=== PATIENT | female | born 1990 | race Caucasian/White ===

== ENCOUNTER 2020-12-18 16:51 | Inpatient (IN) ==
[2020-12-18] MEDS ORDERED: OXYTOCIN 30 UNITS/500 ML BAG IV PRN ×2 (18:51→22:14)
[2020-12-18] MEDS ORDERED: BUTORPHANOL TARTRATE 1 MG/ML VIAL IV PRN (19:01)
[2020-12-18 19:12] LABS: Hematocrit (blood only) 37.6 % (37-47); Hemoglobin 12.8 g/dL (12.0-16.0); Mean Corpuscular Volume 88.3 fL (80-100); Mean Platelet Volume 11.4 fL (7.4-10.4); Platelet Count 147 K/uL (130-400); RDW Coefficient of Variation 13.9 % (11.5-14.5); RDW Standard Deviation 45.3 fL (36.4-46.3); Red Blood Count 4.26 M/uL (4.2-5.4); White Blood Count 13.44 K/uL (4.8-10.8)
[2020-12-18] MEDS ORDERED: ePHEDrine sulfate 50 MG/ML AMP ONE (21:10)
[2020-12-18] MEDS ORDERED: SODIUM CHLORIDE 0.9% INJ 10 ML VIAL ONE (21:10)
[2020-12-18] MEDS ORDERED: BUPIVACAINE 0.25% 30 ML VIAL ONE (21:10)
[2020-12-18] MEDS ORDERED: fentaNYL citrate 100 MCG/2 ML VIAL ONE (21:11)
[2020-12-18] MEDS ORDERED: fentaNYL 2MCG/ML ROPIVACAINE 1.25MG/ML 100 ML BAG EPI ONE (21:11)
[2020-12-18] MEDS: LACTATED RINGER'S 1,000 ML IV PRN (21:24)
[2020-12-18] MEDS ORDERED: ePHEDrine sulfate 50 MG/ML AMP IV PRN (21:36)
[2020-12-18] MEDS ORDERED: PROMETHAZINE HCL 12.5 MG in SODIUM CHLORIDE 0.9% 50 ML IV PRN (21:36)
[2020-12-18] MEDS ORDERED: diphenhydrAMINE 50 MG/ML VIAL IV PRN (21:36)
[2020-12-18] MEDS ORDERED: NALOXONE HCL 1 MG in SODIUM CHLORIDE 0.9% 1000ML 1,000 ML IV PRN (21:36)
[2020-12-18] MEDS ORDERED: ONDANSETRON INJ 2 MG/ML 2 ML VIAL IV PRN (21:36)
[2020-12-18] MEDS ORDERED: NALOXONE HCL 0.4 MG/1 ML VIAL/CARP IV PRN (21:36)
[2020-12-18] MEDS ORDERED: fentaNYL 2MCG/ML ROPIVACAINE 1.25MG/ML 100 ML BAG EPI PRN (21:36)
--- NOTE | 2020-12-18 21:36 | Anesthesiology Consultation ---
Date of Service December 18, 2020 Assessment & Plan ASA ASA2 Proposed Anesthesia Anesthesia Type: Labor Epidural Risk / Benefits Reviewed With: PT / POA / Parent / Guardian, Accepts Plan and Informed Consent Obtained History Height/Weight Height: 5 ft 4.5 in Weight: 72.575 kg Allergies Allergy/AdvReac Type Severity Reaction Status Date / Time clindamycin Allergy Hives Verified 12/18/20 18:07 hydromorphone [From Dilaudid] AdvReac Vomiting Verified 12/18/20 18:07 Medications Home Medications Medication Instructions Recorded Confirmed Last Taken omega-3 fatty acids [Fish Oil] 1 cap PO DAILY 12/18/20 12/18/20 12/17/20 17:00 prenat.vits,abdon,[id number] 1 tab PO DAILY 12/18/20 12/18/20 12/18/20 09:00 [ Vitamin] Active Medications Generic Name Dose Route Start Last Admin Trade Name Freq PRN Reason Stop Dose Admin Lactated Ringer's 1,000 mls @ 125 mls/hr 12/18/20 18:51 12/18/20 21:54 Lr IV 12/20/20 18:50 125 mls/hr .Q8H PRN Infusion L&D Protocol Protocol Past Medical History Medical History Asthma as a child MRSA (methicillin resistant Staphylococcus aureus) Pneumonia 2013 Exercise / Class Metabolic Activity II 4-5 Yardwork/Stairs/Walk up hill Past Surgical History Surgical History No history of previous surgery Past Anesthesia History No Hx of Anesthesia Complications and No Family Hx of Anesthesia Complications History of PONV No Hx of PONV and No Hx of Motion Sickness Social History Smoking Status: Never smoker Hx Alcohol Use: No Hx Substance Use: No Review of Systems denies fever/cough/ colds/ chest pain/ SOB/ MAIREL denies MARIEL Physical Exam Vital Signs Last Vital Signs Temp 36.8 C 12/18/20 20:24 Pulse 115 H 12/18/20 22:09 Resp 20 12/18/20 20:24 BP 108/57 L 12/18/20 22:01 Pulse Ox 99 12/18/20 22:09 ENMT Mouth: no TMJ abnormality and no dentition abnormality Thyromental Distance: > or= 3.5 Finger Breadths Mallampati Class: II Neck neck extension not limited Respiratory normal respiratory effort; no respiratory distress Auscultation: lungs clear to auscultation bilaterally Cardiovascular Rate/Rhythm: regular rate and regular rhythm Neurologic moves all extremities Psychiatric Orientation: alert and oriented x 3 Testing Laboratory Results 12/18/20 19:03
[2020-12-18] MEDS ORDERED: CALCIUM CARBONATE 500 MG CHEWABLE TAB PO PRN (23:29)
[2020-12-19] MEDS: LACTATED RINGER'S 1,000 ML IV PRN (02:27)
[2020-12-19] MEDS ORDERED: DIPHTHERIA/TETANUS/PERTUSSIS 0.5 ML SYR/VIAL IM ONE (04:22)
[2020-12-19] MEDS ORDERED: ACETAMINOPHEN W/CODEINE #3 1 TAB PO PRN (04:22)
[2020-12-19] MEDS ORDERED: ACETAMINOPHEN 325 MG TAB PO PRN (04:22)
[2020-12-19] MEDS ORDERED: SUPERCREAM 0.870% 15 GM JAR EXT PRN (04:22)
[2020-12-19] MEDS ORDERED: oxyCODONE/ACETAMINOPHEN 5mg/325mg TAB PO PRN (04:22)
[2020-12-19] MEDS ORDERED: BENZOCAINE 20% AER SPR 82.5 GM CAN EXT PRN (04:22)
[2020-12-19] MEDS ORDERED: OXYTOCIN 30 UNITS/500 ML BAG IV PRN (04:22)
[2020-12-19] MEDS ORDERED: METHYLERGONOVINE MALEATE 0.2 MG/ML AMP IM ONE (04:22)
[2020-12-19] MEDS ORDERED: miSOPROStoL 200 MCG TAB PR ONE (04:22)
[2020-12-19] MEDS ORDERED: bisacodyL 10 MG SUPP PR PRN (04:22)
[2020-12-19] MEDS ORDERED: HYDROCORTISONE ACETATE 25 MG SUPP PR PRN (04:22)
--- NOTE | 2020-12-19 04:57 | Delivery Summary ---
DATE OF DELIVERY: 12/19/2020 She is 1, para 1. Blood type is O positive, group B strep negative. Due date is 12/20/2020. Was admitted in early labor, she went into spontaneous labor. She had a couple doses of Stadol for pain control. Eventually, she had an epidural. After the epidural was placed and she had good pain relief, membranes were ruptured surgically with some slight meconium noted. She then continued to la bor spontaneously, went to full dilatation in about an hour and a half and pushed out a live male inf ant via direct occiput anterior position over an intact perineum. There was an umbilical cord, which was delivered along with the head. It was not around the neck but just parallel to the body. Infan t was delivered. Cord was allowed to pulse for 1 minute and it was clamped and cut by the father. C ord blood was taken. With IV Pitocin the placenta was removed intact. We also gave a 0.2 of IM Meth ergine, and rectal Cytotec. Inspection of the vagina revealed bilateral sulcus, each sulcus on the r ight and left side. The apex was identified and a running heavy Vicryl was used to reapproximate the vaginal mucosa out to beyond the hymenal ring. Then, a deep suture was used to approximate the bree rajni body. A separate deep suture was used to reapproximate the bulbocavernosus muscle. A running s uture was used to approximate the vaginal edges out to beyond the opening of the vagina. Following t his, hemostasis was good. Rectal exam while giving rectal Cytotec was normal. There were no stitche s through the rectum. Bladder was emptied with a Spencer. Hemostasis was good at the end of the proce dure. Estimated blood loss was 500 mL. Job ID: [id number]
[2020-12-19] MEDS: PRENATAL VITAMIN 1 TAB PO SCH (09:24)
[2020-12-19] MEDS: DOCUSATE SODIUM 100 MG CAP PO SCH ×2 (09:24→17:48)
[2020-12-19] MEDS: IBUPROFEN 600 MG TAB PO PRN ×4 (09:24→23:44)
--- NOTE | 2020-12-19 09:44 | Anesthesia Procedure Note ---
Date of Service December 19, 2020 Anesthesia Post Epidural Note Vital Signs Vital Signs: Temp Pulse Resp BP Pulse Ox 37.1 C 93 H 18 96/60 L 98 12/19/20 07:20 12/19/20 07:20 12/19/20 07:20 12/19/20 07:20 12/19/20 07:20 Pain Intensity Bilateral Abdomen: Pain Intensity: 6 Perineal: Pain Intensity: 5 Notes Mental Status: alert / awake / arousable and participated in evaluation Nausea / Vomiting: adequately controlled Pain: adequately controlled Airway Patency, RR, SpO2: stable & adequate BP & HR: stable & adequate Hydration State: stable & adequate Neuraxial Anesthesia: was administered and sensory block is resolving Anesthetic Complications: no major complications apparent and Pt Satisfied with anesthetic care Epidural: Removed without complications and With tip intact Notes: Epidural site clean, dry and intact. No signs of edema, erythema or bruising at insertion site. Pt instructed to request anesthesia if she has residual lower extremity numbness or if she develops lower extremity pain or weakness, back pain or headache.
[2020-12-19] MEDS ORDERED: METHYLERGONOVINE MALEATE 0.2 MG/ML AMP ONE (21:14)
[2020-12-20 06:51] LABS: Hematocrit (blood only) 32.5 % (37-47); Mean Corpuscular Hemoglobin 29.3 pg (25-34); Mean Corpuscular Hgb Conc 33.8 g/dL (32-36); Mean Corpuscular Volume 86.4 fL (80-100); Mean Platelet Volume 11.3 fL (7.4-10.4); Platelet Count 130 K/uL (130-400); Red Blood Count 3.76 M/uL (4.2-5.4); White Blood Count 11.81 K/uL (4.8-10.8)
[2020-12-20] MEDS: IBUPROFEN 600 MG TAB PO PRN ×4 (08:32→22:18)
[2020-12-20] MEDS: DOCUSATE SODIUM 100 MG CAP PO SCH ×2 (08:32→20:07)
[2020-12-20] MEDS: PRENATAL VITAMIN 1 TAB PO SCH (08:32)
--- NOTE | 2020-12-20 09:36 | Obstetrical Progress Note ---
Date of Service December 20, 2020 Assessment & Plan Admission and Anticipated Discharge Date Admission Date: December 18, 2020 Physical Exam Physical Exam: abdomen soft and non tender no calf tenderness ambulating well vaginal bleeding scant hgb 11.0 Results & Data ([facility]) Vital Signs (Past 12 Hours) Vital Signs Temp Pulse Resp BP Pulse Ox 12/20/20 08:37 36.5 C 76 22 112/76 12/20/20 03:00 36.8 C 83 16 98/68 L 98 12/19/20 23:05 36.6 C 78 16 106/70 98
[2020-12-20] MEDS ORDERED: bisacodyL 5 MG TABEC PO SCH (20:00)
[2020-12-21 06:48] LABS: Hematocrit (blood only) 31.9 % (37-47); Hemoglobin 10.5 g/dL (12.0-16.0)
[2020-12-21] MEDS: DOCUSATE SODIUM 100 MG CAP PO SCH (08:36)
[2020-12-21] MEDS: PRENATAL VITAMIN 1 TAB PO SCH (08:36)
--- NOTE | 2020-12-21 09:51 | Obstetrical Progress Note ---
Date of Service December 21, 2020 Assessment & Plan Admission and Anticipated Discharge Date Admission Date: December 18, 2020 Physical Exam Physical Exam: abdomen soft and non tender ambulating well no calf tenderness vaginal bleeding scant hgb 10.5 Results & Data ([facility]) Vital Signs (Past 12 Hours) Vital Signs Temp Pulse Resp BP 12/20/20 23:25 36.8 C 80 16 98/64 L
[2020-12-21] MEDS: IBUPROFEN 600 MG TAB PO PRN (11:46)
== END 2020-12-21 12:10 | disposition home or self-care (01) | DRG 807 ==
LOC: OPB 16:51 → 4S1 17:05 → 4S2 12-19 07:00

== ENCOUNTER 2022-10-30 19:04 | Inpatient (IN) ==
[2022-10-30] MEDS ORDERED: LACTATED RINGER'S 1,000 ML IV PRN (19:47)
[2022-10-30] MEDS ORDERED: OXYTOCIN 30 UNITS/500 ML BAG IV PRN (19:47)
[2022-10-30] MEDS ORDERED: LIDOCAINE 1% LOCAL 20 ML VIAL INFIL PRN (19:47)
[2022-10-30] MEDS ORDERED: miSOPROStoL 50 MCG TAB PO ONE (19:59)
[2022-10-30 20:34] LABS: Hematocrit (blood only) 32.4 % (37.0-47.0); Hemoglobin 10.8 g/dl (12.0-16.0); Mean Corpuscular Hemoglobin 27.3 pg (25.0-34.0); Mean Corpuscular Hgb Conc 33.3 g/dL (32.0-36.0); Mean Platelet Volume 12.6 fL (9.4-12.4); Platelet Count 138 K/uL (130-400); RDW Coefficient of Variation 15.2 % (11.5-14.5); RDW Standard Deviation 44.9 fL (36.4-46.3); Red Blood Count 3.95 M/uL (4.20-5.40); White Blood Count 8.93 K/ul (4.8-10.8)
[2022-10-30] MEDS ORDERED: fentaNYL 2MCG/ML ROPIVACAINE 1.25MG/ML 100 ML BAG EPI PRN (23:19)
[2022-10-30] MEDS ORDERED: fentaNYL 2MCG/ML ROPIVACAINE 1.25MG/ML 100 ML BAG EPI ONE (23:19)
[2022-10-30] MEDS ORDERED: ROPIVACAINE 0.5% PF 5 MG/ML 20 ML VIAL EPI PRN (23:19)
[2022-10-30] MEDS ORDERED: SODIUM CHLORIDE 0.9% PF INJ 10 ML VIAL ONE (23:19)
[2022-10-30] MEDS ORDERED: NALOXONE HCL 0.4 MG/1 ML VIAL/CARP IV PRN (23:19)
[2022-10-30] MEDS ORDERED: NALBUPHINE HCL INJ 10 MG/ML AMP IV PRN (23:19)
[2022-10-30] MEDS ORDERED: SODIUM CHLORIDE 0.9% PF INJ 10 ML VIAL EPI STA (23:19)
[2022-10-30] MEDS ORDERED: SODIUM CHLORIDE 0.9% PF INJ 10 ML VIAL EPI PRN (23:19)
[2022-10-30] MEDS ORDERED: diphenhydrAMINE 50 MG/ML VIAL IV PRN (23:19)
[2022-10-30] MEDS ORDERED: LIDOCAINE 2% MPF LOCAL 5 ML VIAL EPI PRN (23:19)
[2022-10-30] MEDS ORDERED: ePHEDrine sulfate 50 MG/ML AMP IV PRN (23:19)
[2022-10-30] MEDS ORDERED: BUPIVACAINE 0.25% PF 30 ML VIAL EPI PRN (23:19)
[2022-10-30] MEDS ORDERED: NALOXONE HCL 1 MG in SODIUM CHLORIDE 0.9% 1000ML 1,000 ML IV PRN (23:19)
[2022-10-30] MEDS ORDERED: ONDANSETRON INJ 2 MG/ML 2 ML VIAL IV PRN (23:19)
[2022-10-30] MEDS ORDERED: fentaNYL citrate PF 100 MCG/2 ML VIAL EPI STA (23:19)
[2022-10-30] MEDS ORDERED: BUPIVACAINE 0.25% PF 30 ML VIAL EPI STA (23:19)
[2022-10-30] MEDS ORDERED: LIDOCAINE 2%/EPINEPHRINE 1:200,000 20 ML PF ONE (23:19)
[2022-10-30] MEDS ORDERED: LIDOCAINE 2%/EPINEPHRINE 1:200,000 20 ML PF EPI STA (23:19)
[2022-10-30] MEDS ORDERED: BUPIVACAINE 0.25% PF 30 ML VIAL ONE (23:19)
[2022-10-30] MEDS ORDERED: fentaNYL citrate PF 100 MCG/2 ML VIAL EPI PRN (23:19)
[2022-10-30] MEDS ORDERED: fentaNYL citrate PF 100 MCG/2 ML VIAL ONE (23:19)
--- NOTE | 2022-10-30 23:24 | Anesthesiology Consultation ---
Date of Service October 30, 2022 Assessment & Plan ASA ASA2 Proposed Anesthesia Anesthesia Type: Labor Epidural Risk / Benefits Reviewed With: PT / POA / Parent / Guardian, Accepts Plan and Informed Consent Obtained History Height/Weight Height: 5 ft 5 in Weight: 79.199 kg Allergies Allergy/AdvReac Type Severity Reaction Status Date / Time clindamycin Allergy Hives Verified 12/18/20 18:07 hydromorphone [From Dilaudid] AdvReac Vomiting Verified 12/18/20 18:07 Medications Home Medications Medication Instructions Recorded Confirmed Last Taken omega-3 fatty acids 1 cap PO DAILY 12/18/20 12/18/20 12/17/20 17:00 prenat.vits,abdon,sgo-[id number]-gjskz 1 tab PO DAILY 12/18/20 10/30/22 10/30/22 Active Medications Generic Name Dose Route Start Last Admin Trade Name Freq PRN Reason Stop Dose Admin Lactated Ringer's 1,000 mls @ 125 mls/hr 10/30/22 19:47 10/30/22 23:45 Lr IV 11/01/22 19:46 125 mls/hr .Q8H PRN Infusion L&D Protocol Protocol Ropivacaine 100 ml 10/30/22 23:19 10/30/22 23:52 Fentanyl 2mcg/Ml Ropivacaine 1.25mg/Ml 100 Ml Bag EPI 10/31/22 23:18 100 ml PRN PRN Administration Pain R/T Labor Protocol Past Medical History Medical History Asthma as a child MRSA (methicillin resistant Staphylococcus aureus) Pneumonia 2013 Exercise / Class Metabolic Activity II 4-5 Yardwork/Stairs/Walk up hill Past Surgical History Surgical History No history of previous surgery Past Anesthesia History No Hx of Anesthesia Complications and No Family Hx of Anesthesia Complications History of PONV No Hx of PONV and No Hx of Motion Sickness Social History Smoking Status: Never smoker Hx Alcohol Use: No Hx Substance Use: No Review of Systems denies fever/cough/ colds/ chest pain/ SOB/ MARIEL denies MARIEL Physical Exam Vital Signs Last Vital Signs Temp 36.8 C 10/30/22 22:54 Pulse 111 H 05/14/23 23:58 Resp 16 10/30/22 23:48 BP 120/73 10/30/22 23:58 Pulse Ox 99 10/30/22 23:57 ENMT Mouth: no TMJ abnormality and no dentition abnormality Thyromental Distance: > or= 3.5 Finger Breadths Mallampati Class: II Neck neck extension not limited Respiratory normal respiratory effort; no respiratory distress Auscultation: lungs clear to auscultation bilaterally Cardiovascular Rate/Rhythm: regular rate and regular rhythm Neurologic moves all extremities Psychiatric Orientation: alert and oriented x 3 Testing Laboratory Results 10/30/22 19:54
[2022-10-31] MEDS ORDERED: CALCIUM CARBONATE 500 MG CHEWABLE TAB PO ONE (00:57)
[2022-10-31] MEDS ORDERED: OXYTOCIN 30 UNITS/500 ML BAG IV PRN ×2 (01:22→03:46)
[2022-10-31] MEDS ORDERED: METHYLERGONOVINE MALEATE 0.2 MG/ML AMP IM ONE (03:46)
[2022-10-31] MEDS ORDERED: DIPHTHERIA/TETANUS/PERTUSSIS Vaccine (Tdap, Age 7+yrs) 0.5mL SYR/VL IM ONE (03:46)
[2022-10-31] MEDS ORDERED: oxyCODONE/ACETAMINOPHEN 5mg/325mg TAB PO PRN (03:46)
[2022-10-31] MEDS ORDERED: HYDROCORTISONE ACETATE 25 MG SUPP PR PRN (03:46)
[2022-10-31] MEDS ORDERED: ACETAMINOPHEN W/CODEINE #3 1 TAB PO PRN (03:46)
[2022-10-31] MEDS ORDERED: ACETAMINOPHEN 325 MG TAB PO PRN (03:46)
[2022-10-31] MEDS ORDERED: BENZOCAINE 20% AER SPR 82.5 GM CAN EXT PRN (03:46)
[2022-10-31] MEDS ORDERED: bisacodyL 10 MG SUPP PR PRN (03:46)
--- NOTE | 2022-10-31 05:23 | Delivery Summary ---
DATE OF SERVICE: 10/31/2022 The patient is 2, para 2, blood type O positive, group B strep negative, was brought in for i nduction, 39 weeks 5 days due to lot of pelvic pain and discomfort. She was given p.o. Cytotec when she was admitted to the hospital and then about 4 hours later, she received epidural for pain control and then was augmented with IV Pitocin. Membranes ruptured surgically. The head came down. She pu shed for 20 minutes, delivered a live female infant via direct occiput anterior position over an inta ct perineum. was suctioned through the mouth and the nose. Cord was allowed to pulse for 1 m inute, then clamped and cut by the father. Cord blood was taken with IV Pitocin running, the placent a was removed intact. Inspection of the perineum revealed a second-degree laceration. The vaginal m ucosa was approximated out and to beyond the hymenal ring with a running 2-0 Vicryl, 2 horizontal sut ures were used to approximate the perineal body. A deep suture was used to approximate the bulbocave rnosus muscle, and a running subcuticular suture was used to approximate the perineal skin edges. Fo llowing this, vaginal exam including rectovaginal examination revealed no hematoma formation or spong es in the vagina. The patient was also given IM Methergine. Estimated blood loss was 100 mL. Job ID: [id number]
--- NOTE | 2022-10-31 06:57 | Anesthesia Procedure Note ---
Date of Service October 31, 2022 Anesthesia Post Epidural Note Vital Signs Vital Signs: Temp Pulse Resp BP Pulse Ox 98.4 F 86 20 120/65 97 10/31/22 03:00 10/31/22 06:13 10/31/22 03:00 10/31/22 06:13 10/31/22 03:39 Notes Mental Status: alert / awake / arousable and participated in evaluation Nausea / Vomiting: adequately controlled Pain: adequately controlled Airway Patency, RR, SpO2: stable & adequate BP & HR: stable & adequate Hydration State: stable & adequate Neuraxial Anesthesia: was administered and sensory block is resolving Anesthetic Complications: no major complications apparent and Pt Satisfied with anesthetic care Epidural: Removed without complications and With tip intact
[2022-10-31] MEDS: PRENATAL VITAMIN 1 TAB PO SCH (08:15)
[2022-10-31] MEDS: DOCUSATE SODIUM 100 MG CAP PO SCH ×2 (08:15→20:42)
[2022-10-31] MEDS: IBUPROFEN 600 MG TAB PO PRN ×3 (11:31→20:42)
[2022-11-01] MEDS: IBUPROFEN 600 MG TAB PO PRN ×2 (00:46→11:50)
[2022-11-01 06:56] LABS: Hematocrit (blood only) 28.7 % (37.0-47.0); Hemoglobin 9.7 g/dl (12.0-16.0); Mean Corpuscular Hemoglobin 28.2 pg (25.0-34.0); Mean Corpuscular Hgb Conc 33.8 g/dL (32.0-36.0); Mean Corpuscular Volume 83.4 fL (80.0-100.0); Mean Platelet Volume 12.7 fL (9.4-12.4); Platelet Count 110 K/uL (130-400); RDW Coefficient of Variation 15.4 % (11.5-14.5); RDW Standard Deviation 45.9 fL (36.4-46.3); Red Blood Count 3.44 M/uL (4.20-5.40); White Blood Count 7.93 K/ul (4.8-10.8)
[2022-11-01] MEDS: DOCUSATE SODIUM 100 MG CAP PO SCH (08:10)
[2022-11-01] MEDS: PRENATAL VITAMIN 1 TAB PO SCH (08:10)
--- NOTE | 2022-11-01 08:27 | Obstetrical Progress Note ---
Date of Service November 01, 2022 Assessment & Plan Admission and Anticipated Discharge Date Admission Date: October 30, 2022 Subjective abdomen soft and non tender no calf tenderness ambulating well vaginal bleeding scant hgb 9.7 Results & Data Vital Signs (Past 12 Hours) Vital Signs Temp Pulse Resp BP Pulse Ox O2 Del Method 11/01/22 07:36 36.6 C 80 18 109/74 98 Room Air 11/01/22 04:15 36.6 C 81 18 105/71 97 Room Air 11/01/22 00:30 36.6 C 71 16 104/67 97 Room Air 10/31/22 20:40 36.9 C 80 20 109/73 98 Room Air
[2022-11-01] MEDS ORDERED: bisacodyL 5 MG TABEC PO SCH (20:00)
== END 2022-11-01 01:05 | disposition home or self-care (01) | DRG 807 ==
LOC: 4S1 19:04 → 4E2 10-31 06:57